=== PATIENT | male | born 1995 | race Caucasian/White ===

== ENCOUNTER 2022-06-19 19:29 | Emergency (ER) | payer SELFPAY ==
[2022-06-19] MEDS ORDERED: Bupivacaine 0.25% 10 ML SDV INJECT ONE (20:15)
[2022-06-19] MEDS ORDERED: Lidocaine 1% 5 ML VIAL INJECT ONE (20:15)
[2022-06-19] MEDS ORDERED: Diphtheria,Pertussis(Acell),Tetanus Vaccine 0.5 ML Syringe IM ONE (20:15)
[2022-06-19] MEDS ORDERED: Bacitracin Oint 1 GM U/D Packet TOP ONE (20:51)
== END 2022-06-19 21:02 | disposition home or self-care (01) ==
LOC: MW.ED 19:29
DX: S61.511A Laceration without foreign body of right wrist, initial encounter (principal); S51.811A Laceration without foreign body of right forearm, initial encounter; Z23 Encounter for immunization; W26.0XXA Contact with knife, initial encounter
CPT/HCPCS: 12002; 90471; 90715; 99282; J3490

== ENCOUNTER 2022-07-20 16:36 | Emergency (ER) | payer BC ==
[2022-07-20] MEDS ORDERED: Tetracaine HCl/PF 0.5% 4 ML Bottle EYERT STA (16:52)
[2022-07-20] MEDS ORDERED: valACYclovir 500 MG Tab PO ONE (17:28)
[2022-07-20] MEDS ORDERED: Mupirocin Oint 22 GM Tube TOP ONE (17:28)
== END 2022-07-20 17:43 | disposition home or self-care (01) ==
LOC: MW.ED 16:36
DX: L01.00 Impetigo, unspecified (principal); B02.9 Zoster without complications; Z79.899 Other long term (current) drug therapy; Z72.0 Tobacco use
CPT/HCPCS: 99282; A9270; J3490